=== PATIENT | female | born 1990 | race Caucasian/White ===

== ENCOUNTER 2018-05-27 16:13 | Emergency (ER) | payer MEDICAID | END 2018-05-27 18:10 | disposition home or self-care (01) | LOC: FTE 16:13 | DX: J02.9 Acute pharyngitis, unspecified (principal) | CPT/HCPCS: 99283; Z7502 ==

== ENCOUNTER 2018-07-14 17:54 | Emergency (ER) | payer MEDICAID | END 2018-07-14 20:30 | disposition home or self-care (01) | LOC: FTE 17:54 | DX: R05 Cough (principal); R50.9 Fever, unspecified; R09.81 Nasal congestion | CPT/HCPCS: 99282; Z7502 ==